=== PATIENT | female | born 1935 | race Two or more races ===

== ENCOUNTER 2024-04-16 08:21 | Emergency (ER) | payer OTHER ==
[~2024-04-16] VITALS: Ht 157.5 cm; Wt 58.1 kg
[2024-04-16] MEDS ORDERED: ONDANSETRON HCL/PF 4 MG/2 ML VIAL ONE (08:48)
[2024-04-16] MEDS ORDERED: HYDROMORPHONE 1 MG/1 ML DISP.SYRIN ONE ×2 (08:48→13:09)
[2024-04-16 08:56] LABS: BASOPHILS # (AUTO) 0.1 K/uL (0.0-0.2); BASOPHILS % (AUTO) 0.9 % (0.0-2.0); EOSINOPHILS # (AUTO) 0.4 K/uL (0.0-0.7); EOSINOPHILS % (AUTO) 5.1 % (0.0-6.0); HEMATOCRIT 39 % (33-45); HEMOGLOBIN 12.6 g/dL (11.5-14.8); LYMPHOCYTES # (AUTO) 3.5 K/uL (0.8-4.8); LYMPHOCYTES % (AUTO) 39.7 % (20.0-44.0); MEAN CORPUSCULAR HEMOGLOBIN 28 PG (26.0-33.0); MEAN CORPUSCULAR HGB CONC 33 g/dl (31.0-36.0); MEAN CORPUSCULAR VOLUME 86 fL (82-100); MONOCYTES # (AUTO) 0.6 K/uL (0.1-1.30); MONOCYTES % (AUTO) 7.2 % (2.0-12.0); NEUTROPHILS # (AUTO) 4.1 K/uL (1.8-8.9); NEUTROPHILS % (AUTO) 47.1 % (43.0-81.0); PLATELET COUNT (AUTO) 224 K/uL (150-450); RED BLOOD CELL COUNT(AUTO) 4.49 MIL/uL (4.0-5.2); RED CELL DISTRIBUTION WIDTH 17.4 % (11.5-15.0); WHITE BLOOD COUNT (AUTO) 8.8 K/uL (4.3-11.0)
[2024-04-16] MEDS: IV NS 0.9% 500 ML BAG IV ONE (09:00)
[2024-04-16 09:02] LABS: CALCIUM, SERUM 9.4 mg/dL (8.5-10.1); CARBON DIOXIDE 23 mmol/L (21-32); CHLORIDE 110 mmol/L (98-107); CREATININE 1.3 mg/dL (0.6-1.3); GLUCOSE 189 mg/dL (74-106); POTASSIUM 3.6 mmol/L (3.5-5.1); SODIUM SERUM 144 mmol/L (136-145); UREA NITROGEN, BLOOD 20 mg/dL (7-18)
[2024-04-16 09:06] LABS: INR 0.95 (0.91-1.10); PARTIAL THROMBOPLASTIN TIME 26.8 SEC (24.3-34.3); PROTHROMBIN TIME 10.1 SECS (9.2-11.1)
[2024-04-16] MEDS: ONDANSETRON HCL/PF 4 MG/2 ML VIAL IVP ONE (09:08)
[2024-04-16] MEDS: IV NS 0.9% 1,000 ML BAG IV ONE (09:09)
[2024-04-16] MEDS: HYDROMORPHONE INJ 2 MG/ML DISP.SYRIN IV ONE (09:10)
[2024-04-16] MEDS ORDERED: APIX2.5T PO (10:13)
[2024-04-16] MEDS ORDERED: EMPA10TA PO (10:13)
[2024-04-16] MEDS ORDERED: AMIO200T5 PO (10:13)
[2024-04-16] MEDS ORDERED: CAPT25TA3 PO (10:13)
[2024-04-16] MEDS ORDERED: ROSU10TA29 PO (10:13)
[2024-04-16] MEDS ORDERED: AMLO-212 PO (10:13)
[2024-04-16] MEDS: HYDROMORPHONE 1 MG/1 ML DISP.SYRIN IV ONE (13:00)
[2024-04-16 15:45] VITALS: BP 121/64; TEMP 97.9; O2SAT 96
== END 2024-04-16 14:00 | disposition left against medical advice (07) ==
LOC: ER 08:40
DX: S72.141A Displaced intertrochanteric fracture of right femur, initial encounter for closed fracture (principal); I10 Essential (primary) hypertension; W06.XXXA Fall from bed, initial encounter; Y93.89 Activity, other specified; Y92.89 Other specified places as the place of occurrence of the external cause; Y99.8 Other external cause status
CPT/HCPCS: 99285; 96374; 71045; 96375; 93005; 96376; 73502; 85025; 80048; 36415; 85730; J2405; J7040; J1170 ×2; J7030